=== PATIENT | female | born 1940 | race Caucasian/White ===

== ENCOUNTER 2016-11-19 15:19 | Emergency (ER) | payer OTHER ==
--- NOTE | 2016-11-19 17:29 | PROVIDER DOCUMENTATION ---
HPI-Musculoskeletal Pain/Inj - GENERAL Source: patient - HX OF PRESENT ILLNESS-MUSKULOSKELTAL Quality of Pain: reports: aching Severity in ED: moderate Onset/Duration: 24 hours ago Timing: still present Any recent injury?: No Locality of Occurance: Home Similar Symptoms Previously?: No Recently seen or treated by another doctor?: No <Paige Moses - Last Filed: 11/19/16 17:26> <Ila Anderson - Last Filed: 11/19/16 18:54> - GENERAL Chief Complaint: Extremity Pain Stated Complaint: EXTREMITY PAIN Time Seen by Provider: 11/19/16 17:21 - HX OF PRESENT ILLNESS-MUSKULOSKELTAL Nature of Presenting Problem: Pt is a 76 yof that presents to er with cc of right posterior knee pain that radiates to right anterior lower leg and calf. Painful upon movment and walking. Denies any injury or sob. (Paige Moses) Review of Systems - Adult - REVIEW OF SYSTEMS - ADULT Constitutional: denies: chills, fever, fatique Eyes: reports: no symptoms reported Ears, Nose, Mouth & Throat: denies: ear pain, sinus problem, throat pain Cardiovascular: reports: no symptoms reported Respiratory: reports: no symptoms reported Gastrointestinal: denies: abdominal pain, frequent heartburn, nausea, vomiting Genitourinary: reports: no symptoms reported Musculoskeletal: reports: see HPI, muscle aches. denies: back pain, joint pain , joint swelling Integumentary: reports: no symptoms reported Neurological: reports: no symptoms reported Psychiatric: reports: no symptoms reported Endocrine: reports: no symptoms reported Hematologic/Lymphatic: reports: no symptoms reported Allergic/Immunologic: reports: no symptoms reported All Other Systems: Reviewed and Negative <Paige Moses - Last Filed: 11/19/16 17:26> Past History - Adult - PAST MEDICAL HISTORY-ADULT Review of Records: reports: Nursing Assessment Review, Medications Reviewed Major Childhood Illnesses: reports: denies history Cardiovascular: reports: HTN Gastrointestinal: reports: GERD Genitourinary: reports: denies history Musculoskeletal: reports: denies history Neurological: reports: other (restless legs) Endocrine/Immune: reports: Diabetes, thyroid disorder Other Conditions: reports: denies history - PRIOR SURGERIES/PROCEDURES Surgical/Procedure History: reports: cholecystectomy, hysterectomy, other ( cataracts, hemorrhoidectomy) - IMMUNIZATION STATUS Childhood Immunizations: See Nurse Assessment Flu Vaccine: See Nurse Assessment - FAMILY HISTORY Family History: reviewed, not pertinent - SOCIAL HISTORY Smoking: denies Substance Use: none/never <Paieg Moses - Last Filed: 11/19/16 17:26> Physical Exam-Injury Related - Physical Exam-Injury Related Initial Vital Signs Reviewed: Yes General Appearance: appears well, alert, no apparent distress Eyes: PERRL/EOMI, pink conjunctivae Head, Ears, Nose, Mouth & Throat: normocephalic/atraumatic, moist mucous membranes, normal ENT inspection, TMs normal Neck: non-tender, full range of motion, supple, normal inspection Respiratory: chest non-tender, lungs clear, normal breath sounds, no pleuratic chest pain, no respiratory distress, no accessory muscle use Cardiovascular: normal peripheral pulses, regular rate, rhythm, no edema, no gallop, no JVD, no murmur Peripheral Pulses: dorsalis-pedis (R): 2+, dorsalis-pedis (L): 2+ Abdominal Exam: normal bowel sounds, non tender, soft, no organomegaly, no pulsatile mass Back Exam: normal inspection, no CVA tenderness, no vertebral tenderness Extremity: no pedal edema, tenderness (ttp right posterior knee mild calf ttp) DTR: ankle (R): 2+, ankle (L): 2+ Integumentary: normal color, warm/dry Psych/Mental Status: normal mood/affect, normal thought content, normal thought process, oriented x 3 - Glascow Coma Score Best Eye Response (Moira): (4) open spontaneously Best Verbal Response (Moira): (5) oriented Best Motor Response (Larose): (6) obeys commands Moira Total: 15 <Paige Moses - Last Filed: 11/19/16 17:26> - Physical Exam-Injury Related Initial Vital Signs Reviewed: Yes General Appearance: appears well, alert Eyes: PERRL/EOMI, pink conjunctivae Head, Ears, Nose, Mouth & Throat: normocephalic/atraumatic, moist mucous membranes, normal ENT inspection Respiratory: lungs clear, normal breath sounds Cardiovascular: normal peripheral pulses, regular rate, rhythm, no edema Peripheral Pulses: dorsalis-pedis (R): 2+ Abdominal Exam: non tender, soft Extremity: normal range of motion, normal gait, normal capillary refill, tenderness (right posterior knee). negative: no calf tenderness, deformity, erythema, inflammation, swelling <Ila Anderson Silvana - Last Filed: 11/19/16 18:54> Progress <Paige Moses - Last Filed: 11/19/16 17:26> - ULTRASOUND (By Radiology) 1 US Study: Lower Ext (Right Lower Extremity: No dvt, roth's cyst, verbal orders per US tech) <BeckerIla valadez Silvana - Last Filed: 11/19/16 18:54> - PLAN OF CARE/RESULTS Progress/Plan/Lab Results: Vital Signs - 24 hr 11/19/16 15:47 Temperature 97.0 F L Pulse Rate 80 Respiratory 18 Rate Blood Pressure 150/82 O2 Sat by Pulse 97 Oximetry (Paige Moses) Discussed care, diagnosis and need for follow-up, patient verbalized understanding Laboratory Tests 11/19/16 11/19/16 11/19/16 17:45 17:45 17:45 WBC 7.79 RBC 3.69 L Hgb 10.6 L Hct 32.4 L MCV 87.8 MCH 28.7 MCHC 32.7 L RDW Std Deviation 12.8 Plt Count 355 MPV 11.2 H Immature Gran % (Auto) 0.4 Neut % (Auto) 57.9 Lymph % (Auto) 28.6 Edmunds % (Auto) 9.2 Eos % (Auto) 3.3 Baso % (Auto) 0.6 Immature Gran # (Auto) 0.03 Neut # (Auto) 4.50 Lymph # (Auto) 2.23 Edmunds # (Auto) 0.72 H Eos # (Auto) 0.26 Baso # (Auto) 0.05 D-Dimer 0.40 Sodium 138 Potassium 4.2 Chloride 103 Carbon Dioxide 21 L Anion Gap 14 BUN 17 Creatinine 0.8 Estimated GFR/1.73 m2 > 60 BUN/Creatinine Ratio 21 Glucose 89 Calculated Osmolality 277 Calcium 9.7 Total Bilirubin 0.20 AST 20 ALT 14 Alkaline Phosphatase 77 Total Protein 7.1 Albumin 4.6 Globulin 3.0 Albumin/Globulin Ratio 2.0 Orders Category Date Time Status CBC WITH DIFF [HEME] Stat Lab 11/19/16 17:45 Completed CMP [COMPREHENSIVE METABOLIC PANEL] [CHEM] Stat Lab 11/19/16 17:[address]-D[address] [COAG] Stat Lab 11/19/16 17:45 Completed Hydrocodone/APAP 5 mg/325 mg [[place]-5] Med 11/19/16 18:50 Once 1 each PO NOW ONE US [Venous U/S Right Leg] [CV] Stat Ther 11/19/16 17:34 Completed Last Vital Signs Temp 97.0 F L 11/19/16 15:47 Pulse 80 11/19/16 15:47 Resp 18 11/19/16 15:47 BP 150/82 11/19/16 15:47 Pulse Ox 97 11/19/16 15:47 Allergies codeine [Codeine] Allergy (Unknown, Verified 08/14/16 23:00) Unknown Lab Tests 11/19/16 11/19/16 11/19/16 17:45 17:45 17:45 WBC 7.79 RBC 3.69 L Hgb 10.6 L Hct 32.4 L MCV 87.8 MCH 28.7 MCHC 32.7 L RDW Std Deviation 12.8 Plt Count 355 MPV 11.2 H Immature Gran % (Auto) 0.4 Neut % (Auto) 57.9 Lymph % (Auto) 28.6 Edmunds % (Auto) 9.2 Eos % (Auto) 3.3 Baso % (Auto) 0.6 Immature Gran # (Auto) 0.03 Neut # (Auto) 4.50 Lymph # (Auto) 2.23 Edmunds # (Auto) 0.72 H Eos # (Auto) 0.26 Baso # (Auto) 0.05 D-Dimer 0.40 Sodium 138 Potassium 4.2 Chloride 103 Carbon Dioxide 21 L Anion Gap 14 BUN 17 Creatinine 0.8 Estimated GFR/1.73 m2 > 60 BUN/Creatinine Ratio 21 Glucose 89 Calculated Osmolality 277 Calcium 9.7 Total Bilirubin 0.20 AST 20 ALT 14 Alkaline Phosphatase 77 Total Protein 7.1 Albumin 4.6 Globulin 3.0 Albumin/Globulin Ratio 2.0 Vital Signs - 24 hr 11/19/16 15:47 Temperature 97.0 F L Pulse Rate 80 Respiratory 18 Rate Blood Pressure 150/82 O2 Sat by Pulse 97 Oximetry (Ila Anderson) Departure <Paige Moses - Last Filed: 11/19/16 17:26> - Departure Time of Disposition Order: 18:19 Certified Medical Emergency: Emergent <Ila Anderson - Last Filed: 11/19/16 18:54> - Departure DIAGNOSIS: Roth's cyst of knee Qualifiers: Laterality: right Qualified Code(s): M71.21 - Synovial cyst of popliteal space [Roth], right knee Disposition: HOME 01 Condition: Stable Additional Instructions: ED Follow Up Instructions: You have been treated by a care provider in the Emergency Department. These instructions are being provided to you so you can have an understanding of how to care for yourself upon discharge. Upon discharge from the Emergency Department, you are responsible for making arrangements for follow-up care by a physician of your choice. Take all prescribed medications as directed. Return to the Emergency Department immediately for any new or worsening symptoms. You may call the Physician Referral phone number at [phone] to obtain a list of Physicians who are taking new patients. Prescriptions: Methylprednisolone [Medrol Dosepak] 4 mg PO DIRECTED #1 package Hydrocodone/APAP 5 mg/325 mg [[place]-5] 1 each PO TID #8 tablet Referrals: Katina Rojas MD [Primary Care Provider] - Forms: Return to School/Parent Work Instructions: Roth Cyst Attestation - Scribe Verification/Attestation Scribe:: Paige Moses Acting as Scribe for:: Ila Anderson Scribe documention review:: This chart was documented by a scribe and accurately reflects the service the provider performed and the decisions made by the provider. <Paige Moses - Last Filed: 11/19/16 17:26> Physician Attestation
[2016-11-19 17:55] LABS: MANUAL DIFF NEEDED? NO
[2016-11-19 17:57] LABS: BASO% 0.6 % (0.0-0.8); EOS# 0.26 X1000 (0.0-0.7); EOS% 3.3 % (0.0-10.0); HEMATOCRIT 32.4 % (37.0-47.0); HEMOGLOBIN 10.6 g/dL (12.0-16.0); IMM GRAN# 0.03 X1000 (0.0-0.04); IMM GRAN% 0.4 % (0.0-0.5); LYMPH# 2.23 X1000 (1.2-3.4); LYMPH% 28.6 % (20.5-51.1); MCH 28.7 PG (27-31); MCHC 32.7 g/dL (33-37); MCV 87.8 FL (81-99); MONO# 0.72 X1000 (0.11-0.59); MONO% 9.2 % (1.7-9.3); MPV 11.2 FL (7.4-10.4); NEUT% 57.9 % (42.2-75.2); PLT 355 X1000 (130-400); RBC 3.69 XMIL (4.2-5.4)
[2016-11-19 18:31] LABS: AGAP 14; ALBUMIN 4.6 g/dL (3.5-5.0); ALKALINE PHOSPHATASE 77 U/L (32-104); BUN 17 mg/dL (8-22); CALCIUM 9.7 mg/dL (8.8-10.2); CHLORIDE 103 mmol/L (98-107); COSMO 277; GOT 20 U/L (10-30); GPT 14 U/L (10-36); POTASSIUM 4.2 mmol/L (3.5-5.1); SODIUM 138 mmol/L (136-145); TCO2 21 mmol/L (25-35); TOTAL PROTEIN 7.1 g/dL (6.3-8.3)
[2016-11-19] MEDS ORDERED: NORCO-5 PO ONE (18:50)
[2016-11-19 18:55] VITALS: BP 158/83
--- NOTE | 2016-11-20 08:19 | Extremity Venous Study ---
PROCEDURE NAME: Venous U/S Right Leg - 11/19/2016 VENOUS ULTRASOUND OF THE RIGHT LEG: FINDINGS: The deep veins of the right leg are compressible, and there is no evidence of obstruction to color Doppler flow. There is a popliteal cyst. There is effusion in the knee joint space. IMPRESSION: Roth's cyst and knee joint effusion. No evidence of deep venous thrombosis.
== END 2016-11-19 19:08 | disposition home or self-care (01) ==
LOC: P.ED 15:19
DX: M71.21 Synovial cyst of popliteal space [Baker], right knee (principal); M25.561 Pain in right knee; M79.661 Pain in right lower leg; M79.1 Myalgia; I10 Essential (primary) hypertension; K21.9 Gastro-esophageal reflux disease without esophagitis; G25.81 Restless legs syndrome; E11.9 Type 2 diabetes mellitus without complications; Z79.899 Other long term (current) drug therapy; E07.9 Disorder of thyroid, unspecified
CPT/HCPCS: 80053; 85025; 85379; 93971; 99283